=== PATIENT | female | born 1985 ===

== ENCOUNTER → 2016-11-26 | Outpatient (CLI) | payer OTHER ==
--- NOTE | 2016-11-26 17:07 | US ---
EXAMINATION TYPE: US transvaginal DATE OF EXAM: 11/26/2016 COMPARISON: NONE CLINICAL HISTORY: N92.81 Excessive menustration, R10 Abd Pain. Pt states LMP very heavy/ occasional p elvic pain TECHNIQUE: Transvaginal (TV) Date of LMP: 11/09/2016 EXAM MEASUREMENTS: Uterus: 8.0 x 4.6 x 5.4 cm Endometrial Stripe: 1.1 cm Right Ovary: 3.9 x 2.1 x 3.3 cm Left Ovary: 3.3 x 1.7 x 2.2 cm 1. Uterus: Anteverted Heterogeneous 2. Endometrium: wnl 3. Right Ovary: Probable resolving/involuting hemorrhagic cyst= 1.9 x 1.7 x 2.1 cm 4. Left Ovary: wnl 5. Bilateral Adnexa: wnl 6. Posterior cul-de-sac: Small amount of free fluid IMPRESSION: There is a small amount of free fluid in the cul-de-sac. No adnexal mass. Normal uterus a nd endometrium.
== END | disposition home or self-care (01) ==
LOC: RADUSWWP 16:03
PROVIDERS: ATTEND Family Medicine
DX: N92.1 Excessive and frequent menstruation with irregular cycle (principal)
CPT/HCPCS: 76830